=== PATIENT | male | born 1955 | race Hispanic/Latino ===

== ENCOUNTER 2019-06-04 10:58 | Emergency (ER) | payer SELFPAY ==
[2019-06-04] MEDS ORDERED: METHYLPREDNISOLONE SOD SUCC 125MG/2ML VIAL ONE (11:58)
[2019-06-04] MEDS ORDERED: HYDROCODONE/ACETAMINOPHEN 5/325 MG TAB ONE (11:59)
[2019-06-04] MEDS ORDERED: INSULIN HUMULIN R 100 UNIT/ML 3ML ONE (12:51)
== END 2019-06-04 12:57 | disposition home or self-care (01) ==
LOC: EDH 10:58
DX: N23 Unspecified renal colic (principal); E11.9 Type 2 diabetes mellitus without complications
CPT/HCPCS: 72100; 74176; 82948; 96372; 96374; 99284; J1815; J2930

== ENCOUNTER 2019-06-13 22:50 | Emergency (ER) | payer SELFPAY ==
[2019-06-13 23:32] LABS: APPEARANCE,URINE SL CLOUDY (CLEAR); BILIRUBIN,URINE SMALL (NEGATIVE); COLOR,URINE ORANGE (YELLOW); GLUCOSE, URINE (UA) NEGATIVE (NEGATIVE); KETONES,URINE NEGATIVE (NEGATIVE); LEUKOCYTE ESTERASE ,URINE LARGE (NEGATIVE); NITRATE,URINE POSITIVE (NEGATIVE); OCCULT BLOOD,URINE LARGE (NEGATIVE); PH,URINE 6.5 (5.0-8.0); PROTEIN,URINE 100 mg/dL (NEGATIVE)
[2019-06-13] MEDS ORDERED: KETOROLAC TROMETHAMINE 30MG/ML ONE (23:57)
[2019-06-13] MEDS ORDERED: METOCLOPRAMIDE 10 MG/2 ML VIAL ONE (23:57)
[2019-06-13] MEDS ORDERED: ONDANSETRON HCL 4 MG/2 ML VIAL ONE (23:57)
[2019-06-13 23:59] LABS: BACTERIA,URINE Moderate /HPF (None Seen); RBC,URINE TNTC /HPF (0-1); WBC,URINE TNTC /HPF (0-1)
[2019-06-14 00:16] LABS: BASOPHILS % (AUTO) 0.6 % (0.0-5.0); EOSINOPHILS % (AUTO) 2.5 % (0.0-8.0); LYMPHOCYTES % (AUTO) 21.5 % (21.0-51.0); MEAN CORPUSCULAR HEMOGLOBIN 33.8 pg (27.0-33.0); MEAN CORPUSCULAR HGB CONC 34.6 g/dL (32.0-36.0); MEAN CORPUSCULAR VOLUME 97.8 fL (79-99); MONOCYTES % (AUTO) 6.9 % (3.0-13.0); NEUTROPHILS % (AUTO) 68.5 % (40.0-77.0); PLATELET COUNT (AUTO) 228 K/uL (130-400); RED BLOOD CELL COUNT(AUTO) 4.19 MIL/uL (4.50-6.20); RED CELL DISTRIBUTION WIDTH 12.8 % (11.0-15.5); WHITE BLOOD COUNT (AUTO) 10.9 K/uL (4.8-10.8)
[2019-06-14 00:20] LABS: CREATININE 1.4 mg/dL (0.5-1.5); POTASSIUM 4.3 mmol/L (3.5-5.1)
[2019-06-14 00:24] LABS: ALBUMIN 3.5 g/dL (3.5-5.0); BILIRUBIN,TOTAL 0.6 mg/dL (0.2-1.0); TOTAL PROTEIN, SERUM 8.1 g/dL (6.0-8.3)
[2019-06-14] MEDS ORDERED: TAMSULOSIN HCL 0.4 MG CAP.ER.24H ONE (01:39)
[2019-06-14] MEDS ORDERED: CEFTRIAXONE SODIUM 1 GM ONE (01:39)
== END 2019-06-14 01:54 | disposition home or self-care (01) ==
LOC: EDH 22:50
DX: N23 Unspecified renal colic (principal); R82.71 Bacteriuria; R31.9 Hematuria, unspecified; E11.9 Type 2 diabetes mellitus without complications
CPT/HCPCS: 36415 ×2; 74176; 80053; 81001; 82150; 83605; 83690; 85025; 93005; 96374; 96375; 99285; J0696; J1885; J2405; J2765

== ENCOUNTER 2025-02-16 02:13 | Emergency (ER) | payer OTHER ==
[~2025-02-16] VITALS: Ht 167.6 cm; Wt 91.4 kg
--- NOTE | 2025-02-16 02:17 | NUR ---
UA CUP PROVIDED
--- NOTE | 2025-02-16 03:11 | NUR ---
ASSUMED PT CARE AT THIS TIME
[2025-02-16 03:31] LABS: BASOPHILS # (AUTO) 0.07 K/uL (0.00-0.20); BASOPHILS % (AUTO) 0.6 % (0.0-5.0); EOSINOPHILS # (AUTO) 0.39 K/uL (0.00-0.70); EOSINOPHILS % (AUTO) 3.5 % (0.0-8.0); HEMATOCRIT 44.3 % (42-54); IMMATURE GRANULOCYTE ABSOLUTE 0.03 K/uL (0-1); LYMPHOCYTES # (AUTO) 1.7 K/uL (1.0-4.8); LYMPHOCYTES % (AUTO) 14.9 % (21.0-51.0); MEAN CORPUSCULAR HEMOGLOBIN 32.3 pg (27.0-33.0); MEAN CORPUSCULAR HGB CONC 34.1 g/dL (32.0-36.0); MEAN CORPUSCULAR VOLUME 94.9 fL (79-99); MONOCYTES # (AUTO) 0.6 K/uL (0.1-1.0); MONOCYTES % (AUTO) 5.2 % (3.0-13.0); NEUTROPHILS # (AUTO) 8.5 K/uL (1.8-7.7); NEUTROPHILS % (AUTO) 75.5 % (40.0-77.0); PLATELET COUNT (AUTO) 152 K/uL (130-400); RED BLOOD CELL COUNT(AUTO) 4.67 MIL/uL (4.50-6.20); RED CELL DISTRIBUTION WIDTH 14.6 % (11.0-15.5); WHITE BLOOD COUNT (AUTO) 11.2 K/uL (4.8-10.8)
[2025-02-16 03:36] LABS: ADD UA MICROSCOPIC YES; APPEARANCE,URINE CLEAR (CLEAR); BILIRUBIN,URINE NEGATIVE (NEGATIVE); COLOR,URINE COLORLESS (YELLOW); GLUCOSE, URINE (UA) >=1000 mg/dL (NEGATIVE); KETONES,URINE NEGATIVE (NEGATIVE); LEUKOCYTE ESTERASE ,URINE NEGATIVE Leu/uL (NEGATIVE); NITRATE,URINE NEGATIVE (NEGATIVE); OCCULT BLOOD,URINE SMALL (NEGATIVE); PROTEIN,URINE NEGATIVE (NEGATIVE); UROBILINOGEN,URINE 0.2 mg/dL (0.2-1.0)
[2025-02-16 03:37] LABS: BACTERIA,URINE RARE /HPF (None Seen)
--- NOTE | 2025-02-16 03:39 | ERN ---
General Chief Complaint: Flank Pain Stated Complaint: RT FLANK Time Seen by MD: 03:36 Source: patient History of Present Illness Initial Comments 70-year-old male who has right flank pain. It reminds him exactly of the pain he had before when he had a right kidney stone. Currently no problems urinating no blood in his urine no fevers or chills. Bowel movements are normal. Allergies: Coded Allergies: No Known Allergies (Unverified Allergy, Unknown, 06/04/19) Past Medical History Past Medical History: Diabetes-Type II, Kidney Stone Past Surgical History: CABG Constitutional: (-) chills, (-) diaphoresis, (-) fever, (-) malaise, (-) weakness, (-) other documentation EENTM: (-) eye pain, (-) blurred vision, (-) tearing, (-) double vision, (-) ear pain, (-) ear discharge, (-) nose pain, (-) nose congestion, (-) throat pain, (-) Throat swelling, (-) mouth pain, (-) tooth pain, (-) mouth swelling, (-) other documentation Respiratory: (-) cough, (-) orthopnea, (-) short of breath, (-) stridor, (-) wheezing, (-) other documentation Cardiovascular: (-) chest pain, (-) edema, (-) palpitations, (-) syncope, (-) dyspnea on exertion, (-) other documentation Gastrointestinal/Abdominal: (-) nausea, (-) vomiting, (-) diarrhea, (-) abdominal pain, (-) abdominal distention, (-) constipation, (-) rectal bleeding, (-) dark stool/melena, (-) other documentation Genitourinary: (-) penile discharge, (-) dysuria, (-) frequency, (-) hematuria, (-) pain, (-) other documentation Musculoskeletal: (-) Neck pain, (-) back pain, (-) Flank Pain, (-) joint pain, (-) joint swelling, (-) muscle pain, (-) muscle stiffness, (-) gout, (-) other documentation Skin: (-) laceration, (-) contusion, (-) abrasion, (-) abscess, (-) rash, (-) change in color, (-) change in hair, (-) change in nails, (-) diaphoresis, (-) dryness, (-) other documentation Physical Exam General Appearance: (+) no apparent distress Orientation: (+) alert, (+) oriented x 3 Head/Face Trauma: No Eye: bilateral eye normal inspection, bilateral eye PERRL, bilateral eye EOMI Ear, Nose, Throat: (+) hearing grossly normal, (+) normal ENT inspection Neck: (+) normal inspection, (+) supple, (+) full range of motion, (+) no JVD Respiratory: (+) chest non-tender, (+) lungs clear, (+) well ventilated Heart: (+) regular, (+) no gallop, (+) murmur Vascular: (+) no edema, (+) normal peripheral pulse, (+) no JVD Gastrointestinal: (+) soft, (+) non-tender, (+) bowel sound present Back: (+) no vertebral tenderness Back Comment No vertebral tenderness and no tenderness on the right flank no rashes no vesicles Extremities: (+) normal range of motion, (+) non-tender Results Laboratory and Microbiology Lab and Micro Result Laboratory Tests Test 02/16/25 03:20 White Blood Count 11.2 K/uL (4.8-10.8) H Red Blood Count 4.67 MIL/uL (4.50-6.20) Hemoglobin 15.1 g/dL (14.0-18.0) Hematocrit 44.3 % (42-54) Mean Corpuscular Volume 94.9 fL (79-99) Mean Corpuscular Hemoglobin 32.3 pg (27.0-33.0) Mean Corpuscular Hemoglobin Concent 34.1 g/dL (32.0-36.0) Red Cell Distribution Width 14.6 % (11.0-15.5) Platelet Count 152 K/uL (130-400) Mean Platelet Volume 12.0 fL (7.5-10.5) H Immature Granulocyte % (Auto) 0.3 % (0-1) Neutrophils (%) (Auto) 75.5 % (40.0-77.0) Lymphocytes (%) (Auto) 14.9 % (21.0-51.0) L Monocytes (%) (Auto) 5.2 % (3.0-13.0) Eosinophils (%) (Auto) 3.5 % (0.0-8.0) Basophils (%) (Auto) 0.6 % (0.0-5.0) Neutrophils # (Auto) 8.5 K/uL (1.8-7.7) H Lymphocytes # (Auto) 1.7 K/uL (1.0-4.8) Monocytes # (Auto) 0.6 K/uL (0.1-1.0) Eosinophils # (Auto) 0.39 K/uL (0.00-0.70) Basophils # (Auto) 0.07 K/uL (0.00-0.20) Absolute Immature Granulocyte (auto 0.03 K/uL (0-1) Nucleated Red Blood Cells 0.0 % (0.0-0.19) Urine Color COLORLESS (YELLOW) Urine Appearance CLEAR (CLEAR) Urine pH 6.0 (5.0-8.0) Urine Specific [place] 1.015 (1.001-1.031) Urine Protein NEGATIVE mg/dL (NEGATIVE) Urine Glucose (UA) >=1000 mg/dL (NEGATIVE) H Urine Ketones NEGATIVE mg/dL (NEGATIVE) Urine Occult Blood SMALL (NEGATIVE) H Urine Nitrate NEGATIVE (NEGATIVE) Urine Bilirubin NEGATIVE mg/dL (NEGATIVE) Urine Urobilinogen 0.2 mg/dL (0.2-1.0) Urine Leukocyte Esterase NEGATIVE [place]/uL Urine RBC 6-10 /HPF (0-1) H Urine WBC 2-5 /HPF (0-1) H Urine Bacteria RARE /HPF (None Seen) Sodium Level 141 mmol/L (136-145) Potassium Level 3.9 mmol/L (3.5-5.1) Chloride Level 105 mmol/L (101-111) Carbon Dioxide Level 24 mmol/L (21-32) Blood Urea Nitrogen 26 mg/dL (7-18) H Creatinine 1.1 mg/dL (0.5-1.3) Glomerular Filtration Rate Calc 73 mL/min (>90) Random Glucose 173 mg/dL (70-105) H Total Calcium 8.6 mg/dL (8.5-10.1) MDM Given the patient's history of kidney stones I will do a CT scan looking for kidney stone. I will also get a UA a CBC and a chemistry panel. Chemistry panel was negative except for a little high glucose. CT scan shows a stone in the patient's right kidney but there was no hydronephrosis and there are no stones in either of the urethra. The perinephric stranding seems to be more prominent on the right and there is concern of pyelonephritis there. Patient's white cell count is ever so slightly high. I will give him a short course of antibiotics and discharge him from the hospital. ED Course Orders Procedure Category Date Status Time Cbc With Differential LAB 02/16/25 Complete 03:22 Basic Metabolic Panel LAB 02/16/25 Complete 03:22 Urinalysis Profile LAB 02/16/25 Complete 03:22 Urinalysis Profile LAB 02/16/25 Logged 03:39 Ct Abdomen/Pelvis W/O CT 02/16/25 Taken Contrast 03:40 Vital Signs Date Time Temp Pulse Resp B/P (MAP) Pulse Ox O2 Delivery O2 Flow Rate FiO2 02/16/25 03:26 98.2 89 18 63/ 97 Room Air* 0 21 02/16/25 02:16 98.1 84 16 155/74 98 Room Air DX & DISP Disposition: Discharge Departure Condition: Stable Scripts Cephalexin Monohydrate (Keflex) 500 Mg Cap 500 MG PO QID for 7 Days, #28 CAP Prov: DALILA MAGUIRE MD 02/16/25 Additional Instructions: You do have a kidney stone in your right kidney. There are some subtle indications of increased inflammation in that area though they may represent advancement of kidney disease. Your white blood cell count is ever so slightly elevated. I will be discharging you home with some oral antibiotics for one week. Please return to the emergency room if you have worsening flank pain fever chills nausea vomiting. Referrals: SELF,REFERRAL (PCP) DALILA MAGUIRE MD Feb 16, 2025 03:39
[2025-02-16 03:42] LABS: CREATININE 1.1 mg/dL (0.5-1.3); POTASSIUM 3.9 mmol/L (3.5-5.1)
[2025-02-16] MEDS ORDERED: CEPH500B PO (05:18)
[2025-02-16 05:45] VITALS: BP 117/63; PULSE 78; RESP 18; TEMP 98.3; O2SAT 98
--- NOTE | 2025-02-16 08:51 | HMCIMG ---
CT ABDOMEN/PELVIS W/O CONTRAST HISTORY: Right back pain COMPARISON: None TECHNIQUE: Multiple sequential axial images of the abdomen and pelvis were obtained from the dome of the diaphragm through symphysis pubis. Patient was not given contrast through intravenous route. Oral contrast was not given. FINDINGS: No pleural effusion is seen bilaterally. There is no evidence of parenchymal disease or pulmonary nodule of the visualized lower lungs. Degenerative changes of the thoracolumbar spine are present. The heart is borderline enlarged. Coronary arterial calcifications are seen. The liver, spleen, adrenal glands and pancreas are unremarkable. There is no evidence of hydronephrosis bilaterally. There are nonobstructing right renal calyx stones the largest measuring 3 mm. Nonspecific perinephric fat stranding is seen around the right kidney may be related to pyelonephritis. Urinalysis correlation may be helpful. There is mild diverticulosis. Fecal material is seen in the colon. There are normal size retroperitoneal and mesenteric lymph nodes. No ascites is seen. No CT evidence of acute appendicitis is seen. There is atherosclerosis. Pelvic sidewalls are symmetric bilaterally. Bladder is well distended without wall thickening. IMPRESSION: 1. . There is no evidence of hydronephrosis bilaterally. There are nonobstructing right renal calyx stones the largest measuring 3 mm. Nonspecific perinephric fat stranding is seen around the right kidney may be related to pyelonephritis. Urinalysis correlation may be helpful. CT was performed with one or more following dose reduction techniques: automated exposure control, adjustment of the mA and kv according to patient's size, or use of a iterative reconstruction technique.
== END 2025-02-16 05:46 | disposition home or self-care (01) ==
LOC: EDH 02:13
DX: R10.9 Unspecified abdominal pain (principal); E11.9 Type 2 diabetes mellitus without complications; Z95.1 Presence of aortocoronary bypass graft
CPT/HCPCS: 36415; 74176; 80048; 81001; 85025; 99284